=== PATIENT | male | born 1995 | race Asian ===

== ENCOUNTER → 2017-10-07 | Outpatient (CLI) | payer OTHER ==
--- NOTE | 2017-10-07 17:31 | DIAGNOSTIC IMAGING REPORT ---
MRI OF THE RIGHT KNEE NO CONTRAST CLINICAL HISTORY: Right knee pain status post trauma COMPARISON STUDY: No previous studies for comparison. FINDINGS: Imaging was performed in the axial, sagittal, and coronal planes. The quadriceps and patellar tendons appear intact. There is a minimal bone bruise involving the lateral femoral condyle The anterior crucial ligament is torn. The posterior crucial ligament is intact. No meniscal tears are visualized. There is a joint effusion. The lateral collateral ligament appears intact. There is minimal edema surrounding the medial collateral ligament consistent with a strain. IMPRESSION: 1. Anterior cruciate ligament tear 2. Mild medial collateral ligament strain 3. No meniscal tears 4. Minimal bone bruise involving the lateral femoral condyle Electronically signed by: Milton Correa M.D. 10/07/2017 5:29 PM Dictated Date/Time: 10/07/2017 5:25 PM
== END | disposition home or self-care (01) ==
LOC: C.MRIBC 16:17
PROVIDERS: ATTEND Physician Assistant
DX: M25.561 Pain in right knee (principal)